=== PATIENT | male | born 1995 | race American Indian/Alaskan Native ===

== ENCOUNTER 2017-01-02 12:34 | Emergency (ER) | payer OTHER ==
[2017-01-02 12:45] VITALS: TEMP 97.1; BMI 27.4
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
[2017-01-02] MEDS ORDERED: IBUPROFEN 400 MG TABLET (FP) PO ONE (13:51)
[2017-01-02 15:57] VITALS: BP 136/76; PULSE 60
== END 2017-01-02 15:57 | disposition home or self-care (01) ==
LOC: JER 12:34
DX: S10.83XA Contusion of other specified part of neck, initial encounter (principal); S01.312A Laceration without foreign body of left ear, initial encounter; V43.52XA Car driver injured in collision with other type car in traffic accident, initial encounter; W22.11XA Striking against or struck by driver side automobile airbag, initial encounter; Y92.414 Local residential or business street as the place of occurrence of the external cause; Y93.89 Activity, other specified
CPT/HCPCS: 70450-TC; 72125-TC; 99281-25

== ENCOUNTER 2019-09-18 04:59 | Emergency (ER) | payer BC, OTHER ==
[2019-09-18 05:45] VITALS: BMI 27.4
[2019-09-18] MEDS ORDERED: SODIUM CHLORIDE 1,000 ML IV STA (06:46)
[2019-09-18] MEDS ORDERED: ONDANSETRON 4 MG/2 ML VIAL IVPUSH ONE (06:46)
[2019-09-18] MEDS ORDERED: ONDANSETRON 4 MG/2 ML VIAL ONE (06:50)
[2019-09-18 07:15] LABS: BASO % 0.5 % (0-2.0); EOS % 0.1 % (0-4.5); HEMATOCRIT 42.5 % (35.4-49); HEMOGLOBIN 14.4 GM/dL (11.7-16.9); LYMPH % 16.8 % (8-40); MEAN CELL VOLUME 85.4 fl (80-96); MEAN PLT VOLUME 8.3 fl (7.5-11.1); MONO % 3.4 % (3.8-10.2); NEUT % 79.2 % (42.8-82.8); PLATELET COUNT 210 K/MM3 (134-434); RBC 4.98 M/mm3 (4.00-5.60); RDW 13.4 % (11.9-15.9); WHITE BLOOD COUNT 8.1 K/mm3 (4.0-10.0)
[2019-09-18 07:38] LABS: ALBUMIN 4.2 g/dl (3.4-5.0); BILIRUBIN,TOTAL 0.4 mg/dL (0.2-1); BLOOD UREA NITROGEN 11.7 mg/dL (7-18); CALCIUM 8.8 mg/dL (8.5-10.1); TOT PROT 7.8 g/dl (6.4-8.2)
--- NOTE | 2019-09-18 07:50 | PDOC ---
History of Present Illness - General Chief Complaint: Vomiting/Diarrhea Stated Complaint: VOMITING Time Seen by Provider: 09/18/19 07:03 Past History - Past Medical History Allergies/Adverse Reactions: Allergies Allergy/AdvReac Type Severity Reaction Status Date / Time No Known Allergies Allergy Verified 01/02/17 12:45 Home Medications: Ambulatory Orders NK [No Known Home Medication] 09/18/19 COPD: No Thyroid Disease: No - Psycho Social/Smoking Cessation Hx Smoking History: Never smoked Have you smoked in the past 12 months: No Information on smoking cessation initiated: No Hx Alcohol Use: No Drug/Substance Use Hx: No Substance Use Type: None *Physical Exam - Vital Signs Last Vital Signs Temp Pulse Resp BP Pulse Ox 97.8 F 82 15 120/56 L 99 09/18/19 07:20 09/18/19 07:20 09/18/19 07:20 09/18/19 07:20 09/18/19 07:20 ED Treatment Course - LABORATORY CBC & Chemistry Diagram: 09/18/19 06:58 09/18/19 06:58 - ADDITIONAL ORDERS Additional order review: Laboratory Results 09/18/19 09/18/19 06:58 06:58 Sodium 140 Potassium 4.0 Chloride 110 H Carbon Dioxide 23 Anion Gap 8 BUN 11.7 Creatinine 1.0 Est GFR (CKD-EPI)AfAm 123.27 Est GFR (CKD-EPI)NonAf 106.36 Random Glucose 125 H Calcium 8.8 Total Bilirubin 0.4 AST 82 H ALT 353 H Alkaline Phosphatase 70 Total Protein 7.8 Albumin 4.2 Lipase 104 09/18/19 06:58 RBC 4.98 MCV 85.4 MCHC 34.0 RDW 13.4 MPV 8.3 Neutrophils % 79.2 Lymphocytes % 16.8 Monocytes % 3.4 L Eosinophils % 0.1 Basophils % 0.5 - Medications Given in the ED: ED Medications Discontinued Medications Generic Name Dose Route Start Last Admin Trade Name Freq PRN Reason Stop Dose Admin Sodium Chloride 1,000 mls @ 1,000 mls/hr 09/18/19 06:46 09/18/19 06:57 Normal Saline - IV 09/18/19 07:45 1,000 mls/hr ASDIR STA Administration Ondansetron HCl 4 mg 09/18/19 06:46 09/18/19 06:58 Zofran Injection IVPUSH 09/18/19 06:47 4 mg ONCE ONE Administration Medical Decision Making - Medical Decision Making 09/18/19 08:15 HPI: 24yo M no PMH presents from home c/o "stomach bug" with anorexia and diffuse stomach ache x2 days, and nausea, NBNB emesis x7-8, NB diarrhea x2, and generalized weakness since 0200 this AM. Last ate some food at approx 2200 last PM and kept down. States ate some food he felt was off a few days ago, but no one else sick who ate it. Endorses flu shot this year. Denies cold-like sx, sick contacts but attends college, recent travel, recent abx, recent illness, hx similar sx, myalgias, sore throat, syncope, fever, chills, headache, dizziness, numbness/tingling, focal weakness, vision changes, shortness of breath, cough, chest pain, palpitations, leg swelling, blood in stool, constipation, dysuria, hematuria, confusion, illicit drugs, smoking, alcohol use. ROS: Constitutional: Positive for generalized weakness. Negative for chills, fever, diaphoresis. HENT: Negative for sore throat, rhinorrhea, congestion. Eyes: Negative for visual disturbance. Respiratory: Negative for shortness of breath, cough, and wheezing. Cardiovascular: Negative for chest pain, palpitations, and leg swelling. Gastrointestinal: Positive for abdominal pain, nausea, vomiting, and diarrhea. Negative for blood in stool, constipation. Genitourinary: Negative for dysuria, flank pain, and hematuria. Musculoskeletal: Negative for myalgias, back pain, and neck pain. Skin: Negative for rash. Neurological: Negative for light-headedness, dizziness, vertigo, syncope, weakness, numbness and headaches. Psychiatric/Behavioral: Negative for behavioral problems and confusion. PE: Gen: Alert, NAD, comfortable-appearing, sleeping HEENT: PERRL, EOMI, MMM, NCAT. No conjunctival pallor. Sclera are non-icteric. CV: Regular rate and rhythm. No murmurs, rubs, or gallops. PULM: No resp distress. CTAB, no wheezes, rales, or rhonchi. ABD: soft, NT/ND, no rebound tenderness or guarding, no CVA tenderness. BACK: No TTP of c/t/l-spine. No step-offs or deformities. MSK: No bony deformities. 2+ pulses in all extremities. NEURO: AAOx3. PERRL. No gross CN deficits. Strength and sensation grossly intact throughout. EXTREMITIES: No cyanosis. No clubbing. No edema. No calf tenderness. PSYCH: Normal mood and thought pattern. SKIN: Warm and dry. Normal capillary refill. No rashes. No jaundice. MDM: 24yo M no PMH presents from home c/o "stomach bug" with anorexia and diffuse stomach ache x2 days, and nausea, NBNB emesis x7-8, NB diarrhea x2, and generalized weakness since 0200 this AM. Hemodynamically stable, afebrile, benign abdomen exam, asymptomatic and comfortable s/p IVF and Zofran. Ddx: most likely viral gastroenteritis or food poisoning. Also consider metabolic derangement or anemia. Lower concern for flu due to lack of headache, sore throat, or myalgias, and hx of flu shot. Low concern for emergent GI pathology such as appendicitis, pancreatitis, colitis, diverticulitis, or SBO due to benign abdomen exam. Labs reviewed (CBC,CMP,Lipase). Of note, elevated LFTs - eval for hepatitis. CBC,CMP WBC 8.1 K/mm3 (4.0-10.0) 09/18/19 06:58 RBC 4.98 M/mm3 (4.00-5.60) 09/18/19 06:58 Hgb 14.4 GM/dL (11.7-16.9) 09/18/19 06:58 Hct 42.5 % (35.4-49) 09/18/19 06:58 MCV 85.4 fl (80-96) 09/18/19 06:58 MCH 29.0 pg (25.7-33.7) 09/18/19 06:58 MCHC 34.0 g/dl (32.0-35.9) 09/18/19 06:58 RDW 13.4 % (11.9-15.9) 09/18/19 06:58 Plt Count 210 K/MM3 (134-434) 09/18/19 06:58 MPV 8.3 fl (7.5-11.1) 09/18/19 06:58 Absolute Neuts (auto) 6.4 K/mm3 (1.5-8.0) 09/18/19 06:58 Neutrophils % 79.2 % (42.8-82.8) 09/18/19 06:58 Lymphocytes % 16.8 % (8-40) 09/18/19 06:58 Monocytes % 3.4 % (3.8-10.2) L 09/18/19 06:58 Eosinophils % 0.1 % (0-4.5) 09/18/19 06:58 Basophils % 0.5 % (0-2.0) 09/18/19 06:58 Nucleated RBC % 0 % (0-0) 09/18/19 06:58 Sodium 140 mmol/L (136-145) 09/18/19 06:58 Potassium 4.0 mmol/L (3.5-5.1) 09/18/19 06:58 Chloride 110 mmol/L (98-107) H 09/18/19 06:58 Carbon Dioxide 23 mmol/L (21-32) 09/18/19 06:58 Anion Gap 8 MMOL/L (8-16) 09/18/19 06:58 BUN 11.7 mg/dL (7-18) 09/18/19 06:58 Creatinine 1.0 mg/dL (0.55-1.3) 09/18/19 06:58 Est GFR (CKD-EPI)AfAm 123.27 09/18/19 06:58 Est GFR (CKD-EPI)NonAf 106.36 09/18/19 06:58 Random Glucose 125 mg/dL (74-106) H 09/18/19 06:58 Calcium 8.8 mg/dL (8.5-10.1) 09/18/19 06:58 Total Bilirubin 0.4 mg/dL (0.2-1) 09/18/19 06:58 AST 82 U/L (15-37) H 09/18/19 06:58 ALT 353 U/L (13-61) H 09/18/19 06:58 Alkaline Phosphatase 70 U/L (45-117) 09/18/19 06:58 Total Protein 7.8 g/dl (6.4-8.2) 09/18/19 06:58 Albumin 4.2 g/dl (3.4-5.0) 09/18/19 06:58 Lipase 104 U/L (73-393) 09/18/19 06:58 -Pepcid -Hep A and B panel due to elevated LFTs -US Abdomen 09/18/19 10:00 -US read: GB sludge -Hep A and B panel pending Pt reassessed, asymptomatic, benign exam, wants to go home. D/c home with GI f/u and call back with hep results. Return precautions given. Pt understands all dc instructions and all questions were answered. Discharge - Discharge Information Problems reviewed: Yes Clinical Impression/Diagnosis: Gallbladder sludge Condition: Improved Disposition: HOME - Admission No - Follow up/Referral Referrals: Ezequiel Castaneda MD [Staff Physician] - - Patient Discharge Instructions Patient Printed Discharge Instructions: DI for General Gallbladder Conditions Additional Instructions: You have been seen in the Emergency Department for your nausea, vomiting, and abdominal pain. Your exam, labs and ultrasound show no signs of an emergent condition at this time. Your ultrasound does show some "sludge" in your gallbladder. Your labs show increased liver enzymes. These results do not indicate an emergent condition at this time, but you should follow up with a [employer] within 1-2 weeks. We have given you a referral - call the office to set up an appointment. We have also sent a few additional tests to evaluate your liver and they should result in the next few days. If you don't receive a call in a few days, call the Emergency Department for these results. Also follow-up with your primary care doctor within 1 week. Return to the Emergency Department immediately if you experience worsening abdominal pain, fever, bloody diarrhea, inability to keep down water, or any other new or worsening symptoms. - Post Discharge Activity
[2019-09-18] MEDS ORDERED: FAMOTIDINE 20 MG/50 ML IVPB 20 MG/50 ML MG IVPB ONE (08:00)
[2019-09-18 09:55] VITALS: BP 128/78; PULSE 64; TEMP 98.2
--- NOTE | 2019-09-18 10:42 | PDOC ---
Documentation entered by Ayanna Baird SCRIBE, acting as scribe for Radha Addison MD. Radha Addison MD: This documentation has been prepared by the Brie daniels Joy, SCRIBE, under my direction and personally reviewed by me in its entirety. I confirm that the documentation accurately reflects all work, treatment, procedures, and medical decision making performed by me. Attending Attestation - Resident Resident Name: Radha Bradshaw - ED Attending Attestation I have performed the following: I have examined & evaluated the patient, The case was reviewed & discussed with the resident, I agree w/resident's findings & plan, Exceptions are as noted - HPI HPI: 09/18/19 10:15 The patient is a 24 year old male with no significant past medical history who presents to the ED with nausea, vomiting, diarrhea, and abdominal pain in the epigastric area that onset 4 days ago. As per patient, his arrival to the ED was prompted by worsening pain and throwing up. The patient states that he started having multiple episodes of vomiting 3-4 days ago, last x2 episodes was here in the ED (non-bloody, bilious). Patient states it is just fluid and bile that is coming out. Patient also states that he has had episodes of diarrhea, brown in color 2 days ago (NBNB). As per patient his last meal was between 8-9 PM last night and states that he ate chicken and rice. The patient adds 5 days ago he had tacos and states that he has a sensitive stomach. The patient also adds marijuana use. The patient's mother adds he had slight fever of 100.4 F and took Tylenol. The patient denies chest pain, shortness of breath and dizziness. The patient denies any surgeries. Denies dysuria, frequency, urgency and hematuria. All systems are reviewed and negative except as noted in the HPI. Allergies: NKA Social History: Former smoker, alcohol and marijuana use. - Physicial Exam PE: 09/18/19 10:16 CONSTITUTIONAL: Well-appearing; well-nourished; in no apparent distress HEAD: Normocephalic; atraumatic EYES: PERRL; EOM intact ENMT: External appears normal; normal oropharynx NECK: Supple; non-tender; no cervical lymphadenopathy CARD: Normal S1, S2; no murmurs, rubs, or gallops RESP: Normal chest excursion with respiration; breath sounds clear and equal bilaterally; no wheezes, rhonchi, or rales ABD: Soft, non-distended; non-tender; no palpable organomegaly, no palpable hernias EXT: Normal ROM in all four extremities; non-tender to palpation; distal pulses intact SKIN: Warm, dry, no rash NEURO: No focal neurological deficiencies. - Medical Decision Making 09/18/19 10:43 24 y/o male presented to ED with 4 days of nausea ad vomiting and diarrhea with some epigastric pain. Pt symptoms resolved with zofran and fluid in ED and pt currently feels fine. MDM: Differential diagnosis of pt's symptoms includes but not limited to gastroenteritis, food poisoning, adverse drug reaction due to THC usage, Hepatitis , pt may also have billiary disease. CBC,CMP US of abdomen results noted above. Pt with mildly elevated lfts' and sono showing some sludge, pt wants to go home. Will dc home with out pt f/u with GI due to sludge in gallbladder noted on US.Hepatitis labs were ordered and are pending. Pt instructed to return to ED for fever, increased pain in abdomen or as needed. PT thinks he may have had food poisoning secondary to the tacos he ate just before symptom began.
[2019-09-19 20:11] LABS: HEP B CORE AB, TOT Negative (Negative)
== END 2019-09-18 10:14 | disposition home or self-care (01) ==
LOC: JER 04:59
PROC: 3E0337Z Introduction of Electrolytic and Water Balance Substance into Peripheral Vein, Percutaneous Approach (ICD-10-PCS; principal; 2019-09-18)
PROC: 3E033GC Introduction of Other Therapeutic Substance into Peripheral Vein, Percutaneous Approach (ICD-10-PCS; 2019-09-18)
DX: K82.8 Other specified diseases of gallbladder (principal)
CPT/HCPCS: 36415; 76705-TC; 80053; 83690; 85025; 86704; 86706; 86707; 86708; 86709; 87340; 99282-25; J7030